=== PATIENT | female | born 1940 | race Caucasian/White ===

== ENCOUNTER → 2018-06-26 | Outpatient (CLI) | payer MEDICARE, OTHER ==
[~2018-06-26] MED LIST: IOHEXOL-350 75 ML VIAL IV ONE
== END | disposition home or self-care (01) ==
LOC: RAH 08:51
PROVIDERS: ATTEND Nurse Practitioner Adult Health
DX: K76.89 Other specified diseases of liver (principal); R59.1 Generalized enlarged lymph nodes; Z90.710 Acquired absence of both cervix and uterus; Z90.49 Acquired absence of other specified parts of digestive tract
CPT/HCPCS: 74178; Q9967

== ENCOUNTER → 2018-10-22 | Outpatient (CLI) | payer MEDICARE, OTHER | END | disposition home or self-care (01) | LOC: RAH 12:42 | PROVIDERS: ATTEND Nurse Practitioner Adult Health | DX: R59.0 Localized enlarged lymph nodes (principal) | CPT/HCPCS: 76882 ==

== ENCOUNTER → 2018-12-02 | Outpatient (CLI) | payer MEDICARE, OTHER | END | disposition home or self-care (01) | LOC: SHCH 14:12 | PROVIDERS: ATTEND Internal Medicine Cardiovascular Disease | DX: I87.2 Venous insufficiency (chronic) (peripheral) (principal); I73.9 Peripheral vascular disease, unspecified | CPT/HCPCS: 93970 ==

== ENCOUNTER → 2019-01-06 | Outpatient (CLI) | payer MEDICARE, OTHER | END | disposition home or self-care (01) | LOC: SHCH 13:59 | PROVIDERS: ATTEND Internal Medicine Cardiovascular Disease | DX: R60.9 Edema, unspecified (principal) | CPT/HCPCS: 93306 ==

== ENCOUNTER → 2019-01-12 | Outpatient (CLI) | payer MEDICARE, OTHER ==
[~2019-01-12] VITALS: Ht 167.6 cm; Wt 83.9 kg
[~2019-01-12] MED LIST changes: -IOHEXOL-350 75 ML VIAL IV ONE; +REGADENOSON 0.4 MG/5 ML PF SYG IVP SCH
== END | disposition home or self-care (01) ==
LOC: SHCH 08:11
PROVIDERS: ATTEND Internal Medicine Cardiovascular Disease
DX: R07.9 Chest pain, unspecified (principal); R06.09 Other forms of dyspnea
CPT/HCPCS: 78452; 93017; 96374; A9500 ×2; J2785

== ENCOUNTER → 2019-10-26 | Outpatient (CLI) | payer OTHER | END | disposition home or self-care (01) | LOC: RAH 14:48 | PROVIDERS: ATTEND Nurse Practitioner Adult Health | DX: Z13.6 Encounter for screening for cardiovascular disorders (principal) | CPT/HCPCS: 75571 ==

== ENCOUNTER → 2022-01-15 | Outpatient (CLI) | payer MEDICARE | END | disposition home or self-care (01) | LOC: SHCH 15:27 | PROVIDERS: ATTEND Internal Medicine Cardiovascular Disease | DX: I36.1 Nonrheumatic tricuspid (valve) insufficiency (principal); I11.9 Hypertensive heart disease without heart failure | CPT/HCPCS: 93306 ==

== ENCOUNTER → 2022-07-07 | Outpatient (CLI) | payer MEDICARE | END | disposition home or self-care (01) | LOC: SHCH 12:30 | PROVIDERS: ATTEND Internal Medicine Cardiovascular Disease | DX: I87.2 Venous insufficiency (chronic) (peripheral) (principal) | CPT/HCPCS: 93970 ==

== ENCOUNTER → 2022-11-19 | Outpatient (CLI) | payer MEDICARE | END | disposition home or self-care (01) | LOC: SHCH 13:44 | PROVIDERS: ATTEND Internal Medicine Cardiovascular Disease | DX: I87.2 Venous insufficiency (chronic) (peripheral) (principal); I82.812 Embolism and thrombosis of superficial veins of left lower extremity; Z98.890 Other specified postprocedural states | CPT/HCPCS: 93971 ==

== ENCOUNTER → 2022-12-31 | Outpatient (CLI) | payer MEDICARE | END | disposition home or self-care (01) | LOC: SHCH 09:50 | PROVIDERS: ATTEND Internal Medicine Cardiovascular Disease | DX: I87.2 Venous insufficiency (chronic) (peripheral) (principal); Z98.890 Other specified postprocedural states | CPT/HCPCS: 93971 ==

== ENCOUNTER → 2024-02-03 | Outpatient (CLI) | payer MEDICARE ==
[2024-02-03 12:10] LABS: BASOPHILS % (AUTO) 1.1 % (0.0-5.0); EOSINOPHILS % (AUTO) 1.1 % (0.0-8.0); HEMATOCRIT 45.3 % (36-48); IMMATURE GRANULOCYTE ABSOLUTE 0.02 K/uL (0-1); LYMPHOCYTES # (AUTO) 3.5 K/uL (1.0-4.8); LYMPHOCYTES % (AUTO) 37.8 % (21.0-51.0); MEAN CORPUSCULAR HEMOGLOBIN 30.2 pg (27.0-33.0); MEAN CORPUSCULAR HGB CONC 31.6 g/dL (32.0-36.0); MEAN CORPUSCULAR VOLUME 95.6 fL (79-99); MONOCYTES # (AUTO) 0.6 K/uL (0.1-1.0); MONOCYTES % (AUTO) 6.7 % (3.0-13.0); NEUTROPHILS # (AUTO) 4.9 K/uL (1.8-7.7); NEUTROPHILS % (AUTO) 53.1 % (40.0-77.0); PLATELET COUNT (AUTO) 268 K/uL (130-400); RED BLOOD CELL COUNT(AUTO) 4.74 MIL/uL (4.00-5.50); RED CELL DISTRIBUTION WIDTH 13.5 % (11.0-15.5); WHITE BLOOD COUNT (AUTO) 9.1 K/uL (4.8-10.8)
[2024-02-03 12:42] LABS: ALBUMIN 3.7 g/dL (3.5-5.0); BILIRUBIN,TOTAL 0.5 mg/dL (0.2-1.0); POTASSIUM 4.1 mmol/L (3.5-5.1); TOTAL PROTEIN, SERUM 6.9 g/dL (6.0-8.3)
== END | disposition home or self-care (01) ==
LOC: LAB 08:51
PROVIDERS: ATTEND Internal Medicine Cardiovascular Disease
DX: I87.2 Venous insufficiency (chronic) (peripheral) (principal)
CPT/HCPCS: 36415; 80053; 83735; 83880; 84100; 85025

== ENCOUNTER → 2024-05-05 | Outpatient (CLI) | payer MEDICARE | END | disposition home or self-care (01) | LOC: SHCH 08:24 | PROVIDERS: ATTEND Internal Medicine Cardiovascular Disease | DX: I87.2 Venous insufficiency (chronic) (peripheral) (principal) | CPT/HCPCS: 93925; 93970 ==

== ENCOUNTER 2024-06-26 15:00 | Observation (INO) | payer MEDICARE ==
[~2024-06-26] VITALS: Ht 167.6 cm; Wt 85.7 kg
[2024-06-26 12:07] VITALS: BP 163/75; PULSE 50; RESP 18; TEMP 97.9
[2024-06-26 12:14] LABS: BASOPHILS # (AUTO) 0.06 K/uL (0.00-0.20); BASOPHILS % (AUTO) 0.7 % (0.0-5.0); EOSINOPHILS # (AUTO) 0.13 K/uL (0.00-0.70); EOSINOPHILS % (AUTO) 1.6 % (0.0-8.0); HEMATOCRIT 41.6 % (36-48); IMMATURE GRANULOCYTE ABSOLUTE 0.04 K/uL (0-1); LYMPHOCYTES # (AUTO) 2.8 K/uL (1.0-4.8); MEAN CORPUSCULAR HEMOGLOBIN 29.5 pg (27.0-33.0); MEAN CORPUSCULAR HGB CONC 32.2 g/dL (32.0-36.0); MEAN CORPUSCULAR VOLUME 91.4 fL (79-99); MONOCYTES # (AUTO) 0.6 K/uL (0.1-1.0); MONOCYTES % (AUTO) 7.6 % (3.0-13.0); NEUTROPHILS # (AUTO) 4.6 K/uL (1.8-7.7); NEUTROPHILS % (AUTO) 55.6 % (40.0-77.0); PLATELET COUNT (AUTO) 275 K/uL (130-400); RED BLOOD CELL COUNT(AUTO) 4.55 MIL/uL (4.00-5.50); RED CELL DISTRIBUTION WIDTH 13.2 % (11.0-15.5); WHITE BLOOD COUNT (AUTO) 8.3 K/uL (4.8-10.8)
[2024-06-26 12:46] LABS: POTASSIUM 4.5 mmol/L (3.5-5.1)
[2024-06-29] MEDS ORDERED: ACET-66 PO (17:43)
[2024-06-29] MEDS ORDERED: ATOR20TA65 PO (17:43)
[2024-06-29] MEDS ORDERED: ASPI-1443 PO (17:43)
[2024-06-29] MEDS ORDERED: MVIT PO (17:43)
[2024-06-29] MEDS ORDERED: MECL-226 PO (17:43)
[2024-06-29] MEDS ORDERED: CALC-805 PO (17:43)
[2024-06-29] MEDS ORDERED: LISI20TA24 PO (17:43)
[2024-06-29] MEDS ORDERED: LACT10SO5 PO (17:43)
[2024-06-29] MEDS ORDERED: HYDR12.54 PO (17:43)
[2024-06-29] MEDS ORDERED: MAGN250T39 PO (17:43)
[2024-06-29] MEDS ORDERED: OMEG100033 PO (17:43)
[2024-06-29] MEDS ORDERED: CETI10TA87 PO (17:43)
[2024-07-02] VITALS (18 sets, daily range): BP systolic 118–140; BP diastolic 53–67; PULSE 51–65; RESP 12–19; TEMP 97.2–97.9
[2024-07-02] MEDS: LACTATED RINGERS 1000ML 1,000 ML IV ONE (06:57)
[2024-07-02] MEDS ORDERED: LIDOCAINE HCL-MPF 2% 10ML AMP IJ ONE (07:32)
[2024-07-02] MEDS ORDERED: proPOFol 10 MG/ML 20ML VIAL IV ONE (07:32)
[2024-07-02] MEDS ORDERED: rocuRONium bROMide 10MG/1ML 5ML VL ONE (07:32)
[2024-07-02] MEDS ORDERED: FENTanyl CITRate PF 50 MCG/1 ML 2ML VIAL ONE (07:32)
[2024-07-02] MEDS ORDERED: ondanSETRON 4MG INJ ONE (07:33)
[2024-07-02] MEDS ORDERED: dexaMETHasone SOD PHOSPHATE 10MG/ML 1ML VIAL ONE (07:33)
[2024-07-02] MEDS: ceFAZolin SODIUM 2 GM VIAL ONE (08:15)
[2024-07-02] MEDS ORDERED: ePHEDrine SULFate 50 MG/ML AMPULE ONE (08:19)
[2024-07-02] MEDS: ceFAZolin SODIUM 1 GM VIAL ONE (08:37)
[2024-07-02] MEDS: BUPIvacaine/PF 0.25% 30ML VIAL IJ ONE (08:38)
[2024-07-02] MEDS ORDERED: NEOSTIGMINE METHYLSULFATE 1MG/ML IV ONE (08:50)
[2024-07-02] MEDS ORDERED: GLYCOPYRROLATE 0.2 MG/ML 5 ML VIAL ONE (08:50)
[2024-07-02] MEDS ORDERED: IBUP-2070 PO (09:29)
[2024-07-02] MEDS ORDERED: CEPH500B PO (09:29)
[2024-07-02] MEDS ORDERED: ACET-2079 PO (09:29)
[2024-07-02] MEDS: MEPERIDINE-PF 25 MG/ML SYG ONE ×2 (09:44→09:53)
== END 2024-07-02 11:55 | disposition home or self-care (01) ==
LOC: DAHIP 07-02 06:10
PROVIDERS: ADMIT Orthopaedic Surgery; ATTEND Orthopaedic Surgery
DX: S76.019A Strain of muscle, fascia and tendon of unspecified hip, initial encounter (principal); M70.61 Trochanteric bursitis, right hip; I48.0 Paroxysmal atrial fibrillation; Z90.49 Acquired absence of other specified parts of digestive tract; Z79.899 Other long term (current) drug therapy; Z90.710 Acquired absence of both cervix and uterus; X58.XXXA Exposure to other specified factors, initial encounter; Y93.89 Activity, other specified; Y92.89 Other specified places as the place of occurrence of the external cause; Y99.8 Other external cause status
CPT/HCPCS: 80048; 85025; 36415; 27062; 27299; G0378 ×3; G0379; A4663; J7120; J3010; J0690 ×2; J1100; J0665; J3490 ×4; J2704; J2405; J2710; J2175 ×2; A6223; A6219; A4930 ×2; C1713; A5120; A4215; A4223; A4222; A4221

== ENCOUNTER → 2024-12-07 | Outpatient (CLI) | payer MEDICARE ==
[~2024-12-07] MED LIST changes: +ACET-2079 PO; +ACET-66 PO; +ASPI-1443 PO; +ATOR20TA65 PO; +CALC-805 PO; +CEPH500B PO; +CETI10TA87 PO; +HYDR12.54 PO; +IBUP-2070 PO; +LACT-441 PO; +LISI20TA24 PO; +MAGN250T39 PO; +MECL-226 PO; +MVIT PO; +OMEG100033 PO; -REGADENOSON 0.4 MG/5 ML PF SYG IVP SCH
--- NOTE | 2024-12-07 15:06 | HMCIMG ---
HIP UNILAT 2-3VW LEFT HISTORY: Left hip pain COMPARISON: None TECHNIQUE: 3 images of left hip were obtained. FINDINGS: There is no acute displaced fracture or dislocation. Left hip joint space narrowing is seen. Degenerative changes are seen. IMPRESSION: 1. Findings as described above.
== END | disposition home or self-care (01) ==
LOC: RAH 13:38
PROVIDERS: ATTEND Nurse Practitioner Adult Health
DX: M16.12 Unilateral primary osteoarthritis, left hip (principal); M25.552 Pain in left hip
CPT/HCPCS: 73502